=== PATIENT | male | born 1960 | race Two or more races ===

== ENCOUNTER 2016-09-24 23:14 | Inpatient (IN) | payer MEDICARE, MEDICAID ==
[~2016-09-24] VITALS: Ht 185.4 cm; Wt 99.8 kg
[2016-09-24 23:36] LABS: ADD UA MICROSCOPIC NO; KETONES,URINE NEGATIVE (NEGATIVE); LEUKOCYTE ESTERASE ,URINE NEGATIVE (NEGATIVE)
[2016-09-24 23:38] LABS: BASOPHILS # (AUTO) 0.1 /CMM (0.0-0.2); BASOPHILS % (AUTO) 0.6 % (0.0-2.0); DIFF TOTAL % 100 %; EOSINOPHILS # (AUTO) 0.1 /CMM (0.0-0.7); HEMATOCRIT 52 % (39-51); HEMOGLOBIN 17.4 g/dL (13.5-17.5); LYMPHOCYTES % (AUTO) 22.2 % (20.0-44.0); MEAN CORPUSCULAR HEMOGLOBIN 32 PG (26.0-33.0); MEAN CORPUSCULAR HGB CONC 34 g/dl (31.0-36.0); MEAN CORPUSCULAR VOLUME 94 fL (80-96); MONOCYTES # (AUTO) 0.9 /CMM (0.1-1.30); MONOCYTES % (AUTO) 6.6 % (2.0-12.0); NEUTROPHILS # (AUTO) 9.5 /CMM (1.8-8.9); NEUTROPHILS % (AUTO) 69.6 % (43.0-81.0); PLATELET COUNT (AUTO) 271 /CMM (150-450); RED BLOOD CELL COUNT(AUTO) 5.51 MIL/uL (4.5-6.0); WHITE BLOOD COUNT (AUTO) 13.7 K/uL (4.3-11.0)
[2016-09-24 23:42] LABS: ANION GAP 10 (5-14); CALCIUM, SERUM 8.8 mg/dL (8.5-10.1); CARBON DIOXIDE 34 mmol/L (21-32); CHLORIDE 104 mmol/L (98-107); CREATININE 1.4 mg/dL (0.6-1.3); GFR 52 mL/min (>60); GLUCOSE 93 mg/dL (74-106); POTASSIUM 3.9 mmol/L (3.5-5.1); SODIUM SERUM 144 mmol/L (136-145); UREA NITROGEN, BLOOD 20 mg/dL (7-18)
[2016-09-24 23:47] LABS: ALANINE AMINOTRANSFERASE 37 U/L (12-78); ALBUMIN 3.4 g/dL (3.4-5.0); ASPARTATE AMINOTRANSFERASE 22 U/L (15-37); BILIRUBIN,DIRECT 0.1 mg/dL (0.0-0.2); BILIRUBIN,TOTAL 0.4 mg/dL (0.2-1.0); INDIRECT BILIRUBIN 0.3 mg/dL (0.0-1.1); TOTAL PROTEIN, SERUM 7.4 g/dL (6.4-8.2)
[2016-09-24 23:48] LABS: ACETAMINOPHEN 0 ug/ml (10-30); SALICYLATE 1.9 mg/dL (2.8-20.0)
[2016-09-24 23:49] LABS: PHENCYCLIDINE SCREEN,URINE NEGATIVE (NEGATIVE)
[2016-09-24 23:50] LABS: CANNABINOID, URINE POSITIVE (NEGATIVE)
[2016-09-24] MEDS ORDERED: FEXO-61 PO (23:53)
[2016-09-24] MEDS ORDERED: VENL75TA4 PO (23:53)
[2016-09-24] MEDS ORDERED: OLME1TAB PO (23:53)
[2016-09-24] MEDS ORDERED: DEXL60CA3 PO (23:53)
[2016-09-25] MEDS ORDERED: VENL75TA74 PO (00:21)
[2016-09-25 00:45] VITALS: BP 116/84
[2016-09-25] MEDS ORDERED: MAGNESIUM HYDROXIDE 30 ML UDC PO PRN (01:30)
[2016-09-25] MEDS ORDERED: TEMAZEPAM 7.5 MG CAPSULE PO PRN (01:30)
[2016-09-25] MEDS ORDERED: MAG HYDROX/AL HYDROX/SIMETH 30 ML UDC PO PRN (01:30)
[2016-09-25 15:44] LABS: CHOLESTEROL 256 mg/dL (<200); HDL CHOLESTEROL 37 mg/dL (40-60); LDL 197 mg/dL (0-99); TRIGLYCERIDES 149 mg/dL (30-150)
[2016-09-25 16:00] VITALS: BP 114/71
[2016-09-25] MEDS: VENLAFAXINE 37.5 MG TABLET PO SCH (18:00)
[2016-09-25 20:05] VITALS: BP 122/65
[2016-09-25] MEDS: LORAZEPAM 0.5 MG TABLET PO PRN (21:37)
[2016-09-26 08:15] VITALS: BP 112/74
[2016-09-26] MEDS: VENLAFAXINE 37.5 MG TABLET PO SCH ×2 (08:55→13:18)
[2016-09-26] MEDS: LORAZEPAM 0.5 MG TABLET PO PRN (13:18)
[2016-09-26 16:37] VITALS: BP 109/75
[2016-09-26] MEDS: VENLAFAXINE XR 75 MG CAP.SR.24H PO SCH (17:48)
[2016-09-26 20:00] VITALS: BP 140/67
[2016-09-27 08:15] VITALS: BP 121/68
[2016-09-27] MEDS ORDERED: HYDROCHLOROTHIAZIDE 25 MG TABLET PO SCH (09:00)
[2016-09-27] MEDS: VENLAFAXINE XR 75 MG CAP.SR.24H PO SCH ×3 (09:06→16:56)
[2016-09-27 16:19] VITALS: BP 129/96
== END 2016-09-27 17:42 | disposition home or self-care (01) | DRG 885 ==
LOC: ER 23:20 → GPS 09-25 00:11
PROVIDERS: ADMIT Nurse Practitioner Acute Care; ATTEND Psychiatry & Neurology Psychiatry
DX: F33.2 Major depressive disorder, recurrent severe without psychotic features (principal); N18.3 Chronic kidney disease, stage 3 (moderate); R45.851 Suicidal ideations; E78.5 Hyperlipidemia, unspecified; F41.9 Anxiety disorder, unspecified; I12.9 Hypertensive chronic kidney disease with stage 1 through stage 4 chronic kidney disease, or unspecified chronic kidney disease; D72.829 Elevated white blood cell count, unspecified; K21.9 Gastro-esophageal reflux disease without esophagitis; Z73.6 Limitation of activities due to disability
CPT/HCPCS: 36415; 80048-TC; 80061-TC; 80076-TC; 81000-TC; 85025-TC; 87081-TC; A4606; G0434; G6038-TC; G6039-TC; G6040-TC; Z7610

== ENCOUNTER 2016-11-30 18:07 | Inpatient (IN) | payer MEDICARE, OTHER ==
[~2016-11-30] VITALS: Ht 182.9 cm; Wt 103.0 kg
[~2016-11-30 18:07] MED LIST: DEXL60CA3 PO; FEXO-61 PO; OLME1TAB PO; VENL75TA74 PO
[2016-11-30] MEDS ORDERED: HALOPERIDOL LACTATE INJ 5 MG/ML VIAL ONE (18:13)
[2016-11-30] MEDS ORDERED: diphenhydrAMINE HCL 50 MG/ML VIAL ONE (18:13)
[2016-11-30] MEDS ORDERED: LORAZEPAM INJ 2 MG/ML VIAL ONE (18:13)
[2016-11-30] MEDS ORDERED: HALOPERIDOL LACTATE INJ 5 MG/ML VIAL IM ONE (18:30)
[2016-11-30] MEDS ORDERED: LORAZEPAM INJ 2 MG/ML VIAL IV ONE (18:30)
[2016-11-30] MEDS ORDERED: diphenhydrAMINE HCL 50 MG/ML VIAL IM ONE (18:30)
[2016-11-30 18:33] LABS: BASOPHILS # (AUTO) 0.1 /CMM (0.0-0.2); BASOPHILS % (AUTO) 0.4 % (0.0-2.0); DIFF TOTAL % 100 %; EOSINOPHILS % (AUTO) 0.1 % (0.0-6.0); HEMATOCRIT 51 % (39-51); HEMOGLOBIN 17.3 g/dL (13.5-17.5); LYMPHOCYTES # (AUTO) 1.8 /CMM (0.8-4.8); LYMPHOCYTES % (AUTO) 10.2 % (20.0-44.0); MEAN CORPUSCULAR HEMOGLOBIN 32 PG (26.0-33.0); MEAN CORPUSCULAR HGB CONC 34 g/dl (31.0-36.0); MEAN CORPUSCULAR VOLUME 94 fL (80-96); MONOCYTES # (AUTO) 1.2 /CMM (0.1-1.30); MONOCYTES % (AUTO) 6.9 % (2.0-12.0); NEUTROPHILS # (AUTO) 14.3 /CMM (1.8-8.9); NEUTROPHILS % (AUTO) 82.4 % (43.0-81.0); PLATELET COUNT (AUTO) 248 /CMM (150-450); RED BLOOD CELL COUNT(AUTO) 5.44 MIL/uL (4.5-6.0); WHITE BLOOD COUNT (AUTO) 17.4 K/uL (4.3-11.0)
[2016-11-30 18:39] LABS: KETONES,URINE Negative (NEGATIVE); LEUKOCYTE ESTERASE ,URINE Negative (NEGATIVE); PH,URINE 5.5 (5.0-8.0)
[2016-11-30 18:40] LABS: ANION GAP 15 (5-14); CARBON DIOXIDE 27 mmol/L (21-32); CHLORIDE 106 mmol/L (98-107); CREATININE 1.1 mg/dL (0.6-1.3); GFR 69 mL/min (>60); GLUCOSE 129 mg/dL (74-106); POTASSIUM 3.8 mmol/L (3.5-5.1); SODIUM SERUM 144 mmol/L (136-145); UREA NITROGEN, BLOOD 27 mg/dL (7-18)
[2016-11-30 18:53] LABS: ALANINE AMINOTRANSFERASE 32 U/L (12-78); ASPARTATE AMINOTRANSFERASE 37 U/L (15-37); BILIRUBIN,DIRECT 0.2 mg/dL (0.0-0.2); BILIRUBIN,TOTAL 0.9 mg/dL (0.2-1.0); INDIRECT BILIRUBIN 0.7 mg/dL (0.0-1.1); SALICYLATE 1.6 mg/dL (2.8-20.0); TOTAL PROTEIN, SERUM 7.9 g/dL (6.4-8.2)
[2016-11-30 18:53] LABS: CANNABINOID, URINE POSITIVE (NEGATIVE); PHENCYCLIDINE SCREEN,URINE NEGATIVE (NEGATIVE)
[2016-11-30 18:54] LABS: ACETAMINOPHEN 0 ug/ml (10-30)
[2016-11-30 18:59] LABS: ADD UA MICROSCOPIC YES
[2016-11-30 19:01] LABS: ADD URINE CULTURE NO; WBC,URINE 2-4/HPF /HPF (0-3)
[2016-11-30 19:02] LABS: MUCUS,URINE Few /LPF (None Seen)
[2016-11-30] MEDS ORDERED: LEVOFLOXACIN 750 MG /D5W 150ML 750 MG in PREMIX 1 EA IV SCH (20:00)
[2016-11-30] MEDS ORDERED: LEVOFLOXACIN 750 MG /D5W 150ML 150 ML IV ONE (20:35)
[2016-11-30] MEDS ORDERED: IV SET PRIMARY PUMP SET 1 EA INFUS.SET MC ONE (20:36)
[2016-11-30 21:00] VITALS: BP 153/94
[2016-11-30] MEDS ORDERED: ENOXAPARIN SODIUM 40 MG/0.4 ML DISP.SYRIN SQ ONE (22:12)
[2016-11-30] MEDS ORDERED: ONDANSETRON HCL/PF 4 MG/2 ML VIAL IVP PRN (22:30)
[2016-11-30] MEDS ORDERED: MAGNESIUM HYDROXIDE 30 ML UDC PO PRN (22:30)
[2016-11-30] MEDS ORDERED: ACETAMINOPHEN 325 MG TABLET PO PRN (22:30)
[2016-11-30] MEDS ORDERED: Z GUARD REMEDY 2 OZ OINT TP PRN (22:30)
[2016-11-30] MEDS ORDERED: HYDROCODONE/APAP 5/325MG 1 EACH TABLET PO PRN (22:30)
[2016-11-30] MEDS ORDERED: MAG HYDROX/AL HYDROX/SIMETH 30 ML UDC PO PRN (22:30)
[2016-11-30] MEDS ORDERED: ENOXAPARIN SODIUM 40 MG/0.4 ML DISP.SYRIN SQ SCH (22:30)
[2016-12-01 06:28] LABS: BASOPHILS % (AUTO) 0.2 % (0.0-2.0); DIFF TOTAL % 100 %; EOSINOPHILS # (AUTO) 0.1 /CMM (0.0-0.7); EOSINOPHILS % (AUTO) 0.9 % (0.0-6.0); HEMATOCRIT 48 % (39-51); LYMPHOCYTES # (AUTO) 2.5 /CMM (0.8-4.8); LYMPHOCYTES % (AUTO) 22.4 % (20.0-44.0); MEAN CORPUSCULAR HEMOGLOBIN 32 PG (26.0-33.0); MEAN CORPUSCULAR HGB CONC 34 g/dl (31.0-36.0); MEAN CORPUSCULAR VOLUME 94 fL (80-96); MONOCYTES # (AUTO) 0.9 /CMM (0.1-1.30); MONOCYTES % (AUTO) 8.3 % (2.0-12.0); NEUTROPHILS # (AUTO) 7.6 /CMM (1.8-8.9); NEUTROPHILS % (AUTO) 68.2 % (43.0-81.0); PLATELET COUNT (AUTO) 239 /CMM (150-450); RED BLOOD CELL COUNT(AUTO) 5.05 MIL/uL (4.5-6.0); WHITE BLOOD COUNT (AUTO) 11.1 K/uL (4.3-11.0)
[2016-12-01 06:42] LABS: CALCIUM, SERUM 8.9 mg/dL (8.5-10.1); CREATININE 0.9 mg/dL (0.6-1.3); POTASSIUM 3.3 mmol/L (3.5-5.1)
[2016-12-01] MEDS: PANTOPRAZOLE 40 MG TABLET.DR PO SCH (07:30)
[2016-12-01] MEDS ORDERED: HYDROCODONE/APAP 5/325MG 1 EACH TABLET PO PRN (07:30)
[2016-12-01 08:00] VITALS: BP 139/98
[2016-12-01] MEDS ORDERED: POTASSIUM CHLORIDE 20 MEQ TAB.PRT.SR PO SCH (12:00)
[2016-12-01] MEDS ORDERED: POTASSIUM CHLORIDE 20 MEQ TAB.PRT.SR PO ONE (13:00)
[2016-12-01] MEDS: DIVALPROEX SODIUM 500 MG TABLET.DR PO SCH ×2 (14:53→20:48)
[2016-12-01 16:00] VITALS: BP 133/97
[2016-12-01 20:00] VITALS: BP 146/83
[2016-12-01] MEDS ORDERED: SECONDARY IV SET 1 EA INFUS.SET MC ONE (20:43)
[2016-12-01] MEDS ORDERED: IV NS 0.9% 250 ML IV ONE (20:43)
[2016-12-01] MEDS ORDERED: IV SET PRIMARY PUMP SET 1 EA INFUS.SET MC ONE (20:43)
[2016-12-01] MEDS: LEVOFLOXACIN 750 MG /D5W 150ML 750 MG in PREMIX 1 EA IV SCH (20:48)
[2016-12-01] MEDS: ENOXAPARIN SODIUM 40 MG/0.4 ML DISP.SYRIN SQ SCH ×2 (20:49→21:00)
[2016-12-01] MEDS: ZOLPIDEM TARTRATE 5 MG TABLET PO PRN (20:51)
[2016-12-01] MEDS ORDERED: OLANZAPINE 5 MG/TAB.RAPDIS PO SCH (22:00)
[2016-12-02 08:00] VITALS: BP_SYST 138; BP_SYST 140; BP_DIAS 87; BP_DIAS 98
[2016-12-02] MEDS: DIVALPROEX SODIUM 500 MG TABLET.DR PO SCH ×2 (08:42→20:39)
[2016-12-02] MEDS: PANTOPRAZOLE 40 MG TABLET.DR PO SCH (08:42)
[2016-12-02] MEDS: OLANZAPINE 5 MG/TAB.RAPDIS PO SCH ×2 (15:20→20:39)
[2016-12-02 15:21] LABS: BASOPHILS % (AUTO) 0.3 % (0.0-2.0); DIFF TOTAL % 100 %; EOSINOPHILS # (AUTO) 0.1 /CMM (0.0-0.7); EOSINOPHILS % (AUTO) 0.9 % (0.0-6.0); HEMATOCRIT 49 % (39-51); HEMOGLOBIN 16.4 g/dL (13.5-17.5); LYMPHOCYTES # (AUTO) 2.8 /CMM (0.8-4.8); LYMPHOCYTES % (AUTO) 27.9 % (20.0-44.0); MEAN CORPUSCULAR HEMOGLOBIN 31 PG (26.0-33.0); MEAN CORPUSCULAR HGB CONC 33 g/dl (31.0-36.0); MEAN CORPUSCULAR VOLUME 94 fL (80-96); MONOCYTES # (AUTO) 0.7 /CMM (0.1-1.30); MONOCYTES % (AUTO) 6.6 % (2.0-12.0); NEUTROPHILS # (AUTO) 6.4 /CMM (1.8-8.9); NEUTROPHILS % (AUTO) 64.3 % (43.0-81.0); PLATELET COUNT (AUTO) 246 /CMM (150-450); RED BLOOD CELL COUNT(AUTO) 5.22 MIL/uL (4.5-6.0)
[2016-12-02 15:41] LABS: CREATININE 1.1 mg/dL (0.6-1.3); POTASSIUM 4.4 mmol/L (3.5-5.1)
[2016-12-02 16:00] VITALS: BP 138/87
[2016-12-02 20:00] VITALS: BP 141/98
[2016-12-02] MEDS: ZOLPIDEM TARTRATE 5 MG TABLET PO PRN (20:39)
[2016-12-02] MEDS: LEVOFLOXACIN 750 MG /D5W 150ML 750 MG in PREMIX 1 EA IV SCH (20:39)
[2016-12-02 20:43] VITALS: BP 141/98
[2016-12-02] MEDS: ENOXAPARIN SODIUM 40 MG/0.4 ML DISP.SYRIN SQ SCH (20:46)
[2016-12-03] MEDS: PANTOPRAZOLE 40 MG TABLET.DR PO SCH (07:12)
[2016-12-03] MEDS: OLANZAPINE 5 MG/TAB.RAPDIS PO SCH (08:09)
[2016-12-03] MEDS: DIVALPROEX SODIUM 500 MG TABLET.DR PO SCH (08:09)
[2016-12-03 08:22] VITALS: BP 135/90
== END 2016-12-03 10:54 | DRG 177 ==
LOC: ER 18:09 → GPS 19:31 → MEDSG2 19:58
PROVIDERS: ADMIT Nurse Practitioner Acute Care; ATTEND Nurse Practitioner Acute Care
DX: J69.0 Pneumonitis due to inhalation of food and vomit (principal); N17.0 Acute kidney failure with tubular necrosis; F31.60 Bipolar disorder, current episode mixed, unspecified; E78.5 Hyperlipidemia, unspecified; N18.9 Chronic kidney disease, unspecified; K21.9 Gastro-esophageal reflux disease without esophagitis; F12.10 Cannabis abuse, uncomplicated; G89.29 Other chronic pain; F41.9 Anxiety disorder, unspecified; Z73.6 Limitation of activities due to disability; I12.9 Hypertensive chronic kidney disease with stage 1 through stage 4 chronic kidney disease, or unspecified chronic kidney disease; N18.3 Chronic kidney disease, stage 3 (moderate)
CPT/HCPCS: 36415; 71010-TC; 80048-TC; 80061-TC; 80076-TC; 80305; 81000-TC; 83605-TC; 83735-TC; 84100-TC; 85025-TC; 87040-TC; 87081-TC; 87086-TC; A4216; A4606; G0480; G6039-TC; J1200; J1630; J1650; J1956; J2060; J7050; Z7610

== ENCOUNTER 2016-12-03 11:14 | Inpatient (IN) | payer MEDICARE, OTHER ==
[~2016-12-03] VITALS: Ht 185.4 cm; Wt 106.6 kg
[2016-12-03 11:30] VITALS: BP 154/96
[2016-12-03] MEDS ORDERED: MAG HYDROX/AL HYDROX/SIMETH 30 ML UDC PO PRN (11:30)
[2016-12-03] MEDS ORDERED: MAGNESIUM HYDROXIDE 30 ML UDC PO PRN (11:30)
[2016-12-03] MEDS ORDERED: LORAZEPAM 0.5 MG TABLET PO PRN (11:30)
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
[2016-12-03] MEDS: LORAZEPAM 0.5 MG TABLET PO PRN ×2 (15:03→23:08)
--- NOTE | 2016-12-03 15:03 | NUR ---
GPS RN: PATIENT IS VERY RESTLESS, HYPERVERBAL, UNABLE TO REDIRECT, ASKING FOR MEDICATION TO HELP HIM CALM DOWN. ADMINISTERED ATIVAN 1 MG PO, CONTINUE TO MONITOR.
[2016-12-03 16:00] VITALS: BP 130/96
[2016-12-03] MEDS: OLANZAPINE 5 MG/TAB.RAPDIS PO SCH (16:26)
[2016-12-03] MEDS: IBUPROFEN 400 MG TABLET PO PRN ×2 (16:26→23:08)
--- NOTE | 2016-12-03 19:45 | NUR ---
GPS NOTES RECEIVED PATIENT, SLEEPING IN ROOM. BREATHING EVEN AND UNLABORED. NO SIGNS OF DISTRESS NOTED. WILL CONTINUE TO MONITOR
[2016-12-03 20:00] VITALS: BP 139/69
[2016-12-03] MEDS: DIVALPROEX SODIUM 500 MG TABLET.DR PO SCH (21:06)
[2016-12-03] MEDS: TEMAZEPAM 7.5 MG CAPSULE PO PRN ×2 (21:12→21:22)
--- NOTE | 2016-12-03 21:22 | NUR ---
GPS NOTES PATIENT REQUESTED MICHELLEIEN. INFORMED HIM THAT HE HAS RESTORIL PRESCRIBED AT THIS TIME. MEDICATION WAS OPENED BUT PATIENT SAID HE LIKES TO OPEN THE CAPSULE TO CONSUME JUST THE POWDER BUT HE SPILLED SOME OF THE POWDER ON THE FLOOR. PATIENT UPSET THAT NOW HE WASNT GOING TO GET A FULL DOSE. WASTED THE MEDICATION AND RETRIEVED A NEW ONE. ANOTHER RN WAS NOTIFIED AND WITNESSED FOR ME.
--- NOTE | 2016-12-03 23:23 | NUR ---
GPS NOTES REMOVED ATIVAN 1MG BUT MISREAD THE PYXIS AND HAD MEDICAL CLAIMS MANAGER WITNESS ME WASTING 0.5MG. ADMINISTERED THE FULL DOSE OF 1MG (2 TABS) TO PATIENT.
--- NOTE | 2016-12-03 23:30 | NUR ---
GPS NOTES PT AWAKE, VERY TALKATIVE AND WALKING IN THE HALLS. ALL DUE MEDICATION ADMINISTERED. SAYS HE IS GOING TO BED. WILL CONTINUE TO MONITOR
--- NOTE | 2016-12-04 06:30 | NUR ---
GPS NOTES PATIENT ASLEEP, BREATHING EVEN AND UNLABORED. NO S/S OF DISTRESS NOTED. ALL DUE MEDICATIONS ADMINISTERED, PRN MEDS ALSO GIVEN. PT WAS COOPERATIVE, ATTENTION SEEKING, HYPERVERBAL. NO CHANGES OVERNIGHT. BED IN LOW/LOCKED POSITION. WILL ENDORSE TO AM SHIFT ERICA.
[2016-12-04] MEDS: OLANZAPINE 5 MG/TAB.RAPDIS PO SCH ×3 (09:30→18:42)
[2016-12-04] MEDS: DIVALPROEX SODIUM 500 MG TABLET.DR PO SCH ×2 (09:30→21:01)
[2016-12-04 10:20] VITALS: BP 138/78
[2016-12-04] MEDS: LORAZEPAM 0.5 MG TABLET PO PRN ×2 (12:10→18:42)
--- NOTE | 2016-12-04 12:10 | NUR ---
ADMINISTERED ATIVAN 1 MG PO PRN FOR ANXIETY, PARANOIA, PT VERY MANIC, INTRUSIVE , VERBALLY ABUSIVE, V/S TAKE BP-138/73, P-86, CONTINUED MONITORING.
[2016-12-04] MEDS: IBUPROFEN 400 MG TABLET PO PRN ×2 (12:40→21:06)
--- NOTE | 2016-12-04 12:41 | NUR ---
ADMINISTERED MOTRIN 400 MG PO PRN FOR GENERALIZED PAIN, 03/04, V/S STABLE BP- 135/78, CONTINUED MONITORING.
[2016-12-04 15:45] VITALS: BP 126/96
--- NOTE | 2016-12-04 18:42 | NUR ---
ADMINISTERED ATIVAN 1 MG PO PRN FOR ANXIETY, PARANOIA, V/S STABLE BP-126/96, P-71, CONTINUED MONITORING.
--- NOTE | 2016-12-04 21:00 | NUR ---
GPS NOTES: PT HYPERVERBAL AND VERY PARANOID. PT KEPT ON TALKING ABOUT HIS MONEY IN THE BANK AND MONEY HIDDEN AT HOME. HE WAS VERY WORRIED ABOUT LOOSING A LOT OF MONEY IF HE DOESN'T GET DISCHARGED TOMORROW. PT ALSO ORDERED FOOD BUT CHARGE NURSE EXPLAINED TO HIM THAT FOOD CAN'T BE ORDERED UNLESS IT'S BROUGHT OR PACKED BY HIS FAMILY. PT AGREED AND UNDERSTOOD. PT COMPLAINED OF HEADACHE, PRN MOTRIN 400 MG GIVEN. WILL CONTINUE TO MONITOR.
[2016-12-04] MEDS: TEMAZEPAM 7.5 MG CAPSULE PO PRN (21:05)
--- NOTE | 2016-12-04 22:00 | NUR ---
GPS NOTES: PT STILL VERY TALKATIVE WALKING BACK AND FORTH FROM HIS ROOM TO THE NURSING STATION. PT ASKED TO BORROW THE CORDLESS PHONE TO CALL HIS MOTHER. PT WAS ON THE PHONE FOR ABOUT 30 MIN. CALLING HIS MOTHER AND ROSALIND BRAY. PT STATED THAT HE WANTED TO CALL ROSALIND BRAY IN ORDER TO WITHDRAW HIS MONEY FROM HIS INVESTMENTS.
--- NOTE | 2016-12-04 23:30 | NUR ---
GPS NOTES: PT WAS STILL WALKING BACK AND FORTH FROM HIS ROOM TO THE NURSING STATION. PT CONSTANTLY ASKING FOR MULTIPLE CRACKERS AND JUICE. WHEN PT FINALLY WENT TO HIS ROOM AND TRIED TO SLEEP, PT TRIED TO COVER HIS DOOR WITH A BLANKET TO SECLUDE HIMSELF IN THE ROOM. LIMIT SETTING DONE. PT WAS ABLE TO UNDERSTAND THAT HE NEEDS TO BE CHECKED Q15 MIN. WILL CONTINUE TO MONITOR.
[2016-12-05] MEDS: IBUPROFEN 400 MG TABLET PO PRN ×2 (03:32→21:04)
--- NOTE | 2016-12-05 03:40 | NUR ---
GPS NOTES: PT WOKE UP COMPLAINING OF HEADACHE. PRN MOTRIN 400 MG GIVEN. BP 126/70 HR 83.
[2016-12-05] MEDS: OLANZAPINE 5 MG/TAB.RAPDIS PO SCH ×4 (08:29→22:00)
[2016-12-05] MEDS: DIVALPROEX SODIUM 500 MG TABLET.DR PO SCH ×2 (08:30→18:24)
[2016-12-05] MEDS: LORAZEPAM 0.5 MG TABLET PO PRN ×2 (08:30→14:46)
--- NOTE | 2016-12-05 08:35 | NUR ---
administered 1mg po prn given for anxiety paranoia , v/s taken bp 137/90 p 86 continue to monitoring pt.
[2016-12-05 09:16] VITALS: BP 137/90
--- NOTE | 2016-12-05 14:46 | NUR ---
ADMINISTERED ATIVAN 2 MG PO PRN FOR ANXIETY, PARANOIA DISORGANIZE AND HARD TO FOLLOW DIRECTION. PI M\IS AGGRESSIVE MANIPULATIVE WILL CONTINUE TO MONITOR .
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
[2016-12-05] MEDS ORDERED: OLANZAPINE 10 MG VIAL IM STA (19:24)
[2016-12-05] MEDS ORDERED: LORAZEPAM INJ 2 MG/ML VIAL IM STA (19:25)
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
[2016-12-05 20:00] VITALS: BP 129/98
--- NOTE | 2016-12-05 20:00 | NUR ---
GPS RN NOTE, PLACED A CALL AND LEFT A MESSAGE FOR MEIR VILLEGAS (PATIENT MOTHER) PHONE # [phone]. WILL CONTINUE TO MONITOR THIS PATIENT.
--- NOTE | 2016-12-05 20:31 | NUR ---
GPS/RN NOTE: UNABLE TO GIVE BENICAR PILL FOR BP, PATIENT STILL UPSET AND DELUSIONAL, LAUGHING, NOT FOLLOWING DIRECTION. WILL CONTINUE TO MONITOR. BP NOW 129/98, HR 70. SAT. 100% ROOM AIR.
--- NOTE | 2016-12-05 23:20 | NUR ---
GPS/RN NOTE: PATIENT RELEASED FROM FOUR POINT RESTRAINT TO USE THE BATHROOM. ALL FOUR EXTREMITIES CHECKED. NO NEW SKIN ISSUES, NO BRUISING, NO SKIN TEAR, NO PAIN NOTED THIS TIME. PATIENT STILL HARD TO REDIRECT. WILL RENEW FOUR POINT RESTRAINT ORDER.
[2016-12-06] MEDS: BENICAR HCT PO SCH ×2 (00:26→08:12)
[2016-12-06] MEDS: OLANZAPINE 5 MG/TAB.RAPDIS PO SCH ×4 (00:26→21:07)
--- NOTE | 2016-12-06 00:26 | NUR ---
GPS/RN NOTE: PATIENT OFF FOUR POINT RESTRAINT, FOLLOWS DIRECTION AT THIS TIME. BENICAR TAB 1 PO GIVEN AND ZYPREXA TAB PO GIVEN.
[2016-12-06] MEDS: TEMAZEPAM 7.5 MG CAPSULE PO PRN ×2 (00:41→21:07)
--- NOTE | 2016-12-06 00:44 | NUR ---
GPS/RN NOTE: PATIENT STILL AWAKE, UNABLE TO SLEEP, FIDGETY. RESTORIL 7.5 MG CAP 1 PO GIVEN.
--- NOTE | 2016-12-06 00:45 | NUR ---
GPS/RN NOTE: PATIENT STARTED GETTING AGITATED, HAVING DIFFICULTY FOLLOWING DIRECTIONS, REQUESTED USING THE BATHROOM, STAFF ASSISTED. PATIENT NEEDS CONSTANT AND FIRM REDIRECTION, UNPREDICTABLE AND VERY LABILE. STILL ON 1:1 SITTER FOR SAFETY.
--- NOTE | 2016-12-06 00:58 | NUR ---
THE PATIENT WAS RELEASED FROM 4 POINT RESTRAINT AT 23:20.
[2016-12-06 08:00] VITALS: BP 155/108
[2016-12-06] MEDS: DIVALPROEX SODIUM 500 MG TABLET.DR PO SCH ×3 (08:08→17:22)
[2016-12-06] MEDS: LORAZEPAM 0.5 MG TABLET PO PRN ×2 (08:09→17:22)
--- NOTE | 2016-12-06 12:19 | NUR ---
Initial discharge plan: Pt. lives in an apartment at [address] [place] [address] and wants to return there. Per pt's mother, he is unable to return there but can go live with his mother, Cathy [phone]. SW will work with pt, md and mother and will form safe and proper discharge.
[2016-12-06 16:14] VITALS: BP 127/93
--- NOTE | 2016-12-06 17:22 | NUR ---
ADMINISTERED ATIVAN 2 MG PO PRN FOR ANXIETY, PARANOIA, DEMANDING, AGGRESSIVE, DELUSIONAL, HARD TO FOLLOW DIRECTION, V/S STABLE BP-127/93, P-108, 1:1 SITTER NEXT TO THE PATIENT FOR SAFETY, CONTINUED MONITORING.
--- NOTE | 2016-12-06 19:30 | NUR ---
GPS RN NOTE, RECEIVED PATIENT AWAKE AND IN BED, NO S/S OR COMPLAINTS OF PAIN AT THIS TIME. PATIENT IS DISPLAYING NO S/S OF APPARENT DISTRESS AT THIS TIME. PATIENT BREATHING IS UNLABORED WITH EQUAL RISE AND FALL OF THE CHEST. PATIENT IS ALERT AND ORIENTED X 2 ON ROOM AIR WITH A SPO2 96%. PATIENT COMPLIANT WITH MEDICATIONS, ANXIOUS, HYPERVERBAL, DISORGANIZED, CONFUSED AT TIMES, AND NEEDS REORIENTATION. PATIENT DENIES SUICIDE AND HOMICIDAL IDEATIONS AT THIS TIME. PATIENT ASSISTED WITH TURNING AND REPOSITIONING Q2HR AND PRN FOR COMFORT AND CIRCULATION. PATIENT HAS NO NEEDS AT THIS TIME. PATIENT REFUSED SKIN ASSESSMENT TODAY. PATIENT EDUCATED ON THE USE OF THE CALL TREJO. PATIENT BED SIDE RAILS UP X2 FOR SAFETY, BED IS LOCKED AND LOW WILL CONTINUE TO MONITOR AND MAINTAIN SAFETY.
[2016-12-06 20:18] VITALS: BP 113/83
--- NOTE | 2016-12-06 21:07 | NUR ---
GPS RN NOTE, PATIENT HAS A COMPLAINT OF NOT BEING ABLE TO SLEEP AND WOULD LIKE A SLEEPING AID AT THIS TIME. PATIENT VITAL SIGNS ARE STABLE. GAVE RESTORIL 7.5MG PO HS ORDERED. WILL REASSESS FOR INSOMNIA AND I WILL CONTINUE TO MONITOR THIS PATIENT.
[2016-12-07 07:27] LABS: BASOPHILS % (AUTO) 0.2 % (0.0-2.0); EOSINOPHILS # (AUTO) 0.2 /CMM (0.0-0.7); EOSINOPHILS % (AUTO) 2.5 % (0.0-6.0); HEMATOCRIT 52 % (39-51); HEMOGLOBIN 17.3 g/dL (13.5-17.5); LYMPHOCYTES # (AUTO) 2.9 /CMM (0.8-4.8); MEAN CORPUSCULAR HEMOGLOBIN 32 PG (26.0-33.0); MEAN CORPUSCULAR HGB CONC 33 g/dl (31.0-36.0); MEAN CORPUSCULAR VOLUME 96 fL (80-96); MONOCYTES # (AUTO) 0.8 /CMM (0.1-1.30); MONOCYTES % (AUTO) 9.5 % (2.0-12.0); NEUTROPHILS # (AUTO) 4.8 /CMM (1.8-8.9); NEUTROPHILS % (AUTO) 54.8 % (43.0-81.0); PLATELET COUNT (AUTO) 184 /CMM (150-450); RDW COEFFICIENT OF VARIATION 13.7 (11.5-15.0); RED BLOOD CELL COUNT(AUTO) 5.49 MIL/uL (4.5-6.0); WHITE BLOOD COUNT (AUTO) 8.8 K/uL (4.3-11.0)
[2016-12-07 07:34] LABS: CALCIUM, SERUM 8.9 mg/dL (8.5-10.1); CREATININE 1.2 mg/dL (0.6-1.3); POTASSIUM 4.8 mmol/L (3.5-5.1)
[2016-12-07] MEDS: DIVALPROEX SODIUM 500 MG TABLET.DR PO SCH ×3 (07:55→18:39)
[2016-12-07] MEDS: BENICAR HCT PO SCH (07:55)
[2016-12-07] MEDS: LORAZEPAM 0.5 MG TABLET PO PRN ×2 (07:56→18:40)
[2016-12-07] MEDS: OLANZAPINE 5 MG/TAB.RAPDIS PO SCH ×3 (07:56→22:02)
--- NOTE | 2016-12-07 07:56 | NUR ---
PATIENT PARANOID, AGGRESSIVE, IRRITABLE, HARD TO REDIRECT, SUSPICIOUS, UNPREDICTABLE, ADMINISTERED ATIVAN 2 MG PO PRN PRESCRIBED, V/S STABLE BP-129/99,P- 99, CONTINUED MONITORING.
[2016-12-07 08:43] VITALS: BP 129/99
--- NOTE | 2016-12-07 09:37 | NUR ---
ULYSSES spoke with pt's mother, Cathy [phone] and she confirms some of the stories that the patient has told and it appears that most are correct. Pt. did buy a new house and will be able to move in with her and the new address is [address] [place] [id number]. Per Cathy, when at his baseline, pt is completely different than he is right now.
[2016-12-07 15:55] VITALS: BP 130/80
--- NOTE | 2016-12-07 20:00 | NUR ---
RECEIVED PATIENT IN THE ROOM, ALERT AND ORIENTED X2, RESTLESS, TALKING INCOHERENTLY, DOES NOT ANSWER QUESTIONS CORRECTLY, MUMBLING TO SELF. NO SOB, NOT IN APPARENT PAIN AT THIS TIME, AMBULATES WITH STEADY GAIT. SITTER AT THE BEDSIDE. WILL CONTINUE TO MONITOR.
[2016-12-07 20:45] VITALS: BP 101/72
[2016-12-07 22:00] VITALS: BP 101/72
[2016-12-07] MEDS: TEMAZEPAM 7.5 MG CAPSULE PO PRN (22:03)
--- NOTE | 2016-12-07 22:45 | NUR ---
COMPLIANT WITH MEDICATION WITH REDIRECTION. TALKING TO SELF. GIVEN RESTORIL, SITTER AT THE BEDSIDE.
--- NOTE | 2016-12-08 06:30 | NUR ---
PATIENT RESTING COMFORTABLY IN BED, CALM, NO SOB, NO DISTRESS, NO COMPLAIN OF PAIN. COMPLIANT WITH MEDICATION, SITTER AT THE BEDSIDE.
[2016-12-08 08:00] VITALS: BP 136/70
[2016-12-08] MEDS: DIVALPROEX SODIUM 500 MG TABLET.DR PO SCH ×3 (09:00→17:10)
[2016-12-08] MEDS: BENICAR HCT PO SCH (09:00)
[2016-12-08] MEDS: OLANZAPINE 5 MG/TAB.RAPDIS PO SCH ×3 (09:05→21:59)
[2016-12-08 16:00] VITALS: BP 107/60
[2016-12-08] MEDS: LORAZEPAM 0.5 MG TABLET PO PRN (19:22)
[2016-12-08 20:00] VITALS: BP 144/97
[2016-12-08] MEDS: TEMAZEPAM 7.5 MG CAPSULE PO PRN (21:59)
[2016-12-09] MEDS: LORAZEPAM 0.5 MG TABLET PO PRN ×2 (01:47→09:22)
[2016-12-09 08:13] VITALS: BP 117/83
[2016-12-09] MEDS: DIVALPROEX SODIUM 500 MG TABLET.DR PO SCH ×3 (08:28→16:57)
[2016-12-09] MEDS: OLANZAPINE 5 MG/TAB.RAPDIS PO SCH ×3 (08:28→21:53)
[2016-12-09] MEDS: BENICAR HCT PO SCH (08:29)
--- NOTE | 2016-12-09 09:22 | NUR ---
GPS RN: PATIENT NOTED TO BE INCREASINGLY AGITATED, UNCOOPERATIVE, TRYING TO RIP HIS GOWN, DELUSIONAL, RESTLESS, HARD TO REDIRECT. ADMINISTERED ATIVAN 2MG PO ORDERED. VS STABLE, CONTINUE TO MONITOR THE PATIENT.
[2016-12-09 16:04] VITALS: BP 102/63
[2016-12-09] MEDS ORDERED: OLANZAPINE 10 MG VIAL IM ONE (16:30)
[2016-12-09] MEDS ORDERED: LORAZEPAM INJ 2 MG/ML VIAL IV PRN (16:30)
[2016-12-09] MEDS ORDERED: LORAZEPAM INJ 2 MG/ML VIAL IM STA (16:37)
--- NOTE | 2016-12-09 16:57 | NUR ---
GPS RN: PATIENT NOTED TO BE INCREASINGLY AGITATED, UNCOOPERATIVE, DELUSIONAL, RESTLESS, THROWING THE CHAIR, REFUSING PO MEDS, UNABLE TO REDIRECT. DR. SCHILLING PAGED WITH AN ORDER TO ADMINISTER ATIVAN 2MG IM ONCE AND ZYPREXA 15 MG IM ONCE. NOTED AND CARRIED OUT. CONTINUE TO MONITOR THE PATIENT.
[2016-12-09 20:00] VITALS: BP 103/68
[2016-12-09] MEDS: TEMAZEPAM 7.5 MG CAPSULE PO PRN (21:53)
[2016-12-10 08:36] VITALS: BP 118/82
[2016-12-10] MEDS: OLANZAPINE 5 MG/TAB.RAPDIS PO SCH ×3 (10:22→21:39)
[2016-12-10] MEDS: DIVALPROEX SODIUM 500 MG TABLET.DR PO SCH ×3 (10:22→16:26)
[2016-12-10] MEDS: BENICAR HCT PO SCH (10:24)
[2016-12-10 16:18] VITALS: BP 91/63
[2016-12-10 20:00] VITALS: BP 107/59
--- NOTE | 2016-12-10 20:00 | NUR ---
PATIENT IN ACTIVITY ROOM, WITH EPISODES OF AGITATION, RAMBLING TO SELF, INCOHERENT, DANGER TO OTHERS, NO SOB, DENIES ANY PAIN AT THIS TIME. ON ONE ON ONE SITTER. KEPT SAFE AND COMFORTABLE, WILL CONTINUE TO MONITOR.
[2016-12-10] MEDS: LORAZEPAM 0.5 MG TABLET PO PRN (20:52)
--- NOTE | 2016-12-10 20:53 | NUR ---
PATIENT IS RESTLESS, AGITATED, EASILY AGITATED, GIVEN ATIVAN 2MG PO. PATIENT IS SITTING IN DANNY CHAIR, SITTER BESIDE PATIENT. KEPT SAFE AND COMFORTABLE. WILL CONTINUE TO MONITOR.
[2016-12-10 22:00] VITALS: BP 107/59
[2016-12-10] MEDS: TEMAZEPAM 7.5 MG CAPSULE PO PRN (22:56)
--- NOTE | 2016-12-10 23:00 | NUR ---
PATIENT STILL RESTLESS, PACING IN THE ROOM, TALKING TO SELF. SITTER AT THE BEDSIDE. GIVEN RESTORIL. WILL CONTINUE TO MONITOR.
--- NOTE | 2016-12-11 01:24 | NUR ---
RESTORIL NOT EFFECTIVE, PATIENT STILL AWAKE IN BED, TALKING TO SELF, KEPT SAFE AND COMFORTABLE, SITTER AT THE BEDSIDE
[2016-12-11] MEDS: LORAZEPAM 0.5 MG TABLET PO PRN ×2 (05:54→13:01)
--- NOTE | 2016-12-11 06:17 | NUR ---
PATIENT UP ON CHAIR, TALKING TO SELF, RAMBLING TO SELF, RESTLESS, AGITATED, UNABLE TO REDIRECT BEHAVIOR, GIVEN ATIVAN 2 MG PO. KEPT SAFE, SITTER AT THE BEDSIDE. BP IS 115/65 HR 99
[2016-12-11 08:00] VITALS: BP 110/83
[2016-12-11] MEDS: OLANZAPINE 5 MG/TAB.RAPDIS PO SCH ×3 (08:36→21:36)
[2016-12-11] MEDS: BENICAR HCT PO SCH (08:36)
[2016-12-11] MEDS: DIVALPROEX SODIUM 500 MG TABLET.DR PO SCH ×3 (08:36→16:28)
--- NOTE | 2016-12-11 13:02 | NUR ---
ADMINISTERED ATIVAN 2 MG/ ML PO PRN FOR ANXIETY, PARANOIA, V/S STABLE BP- 113/80, P-92, CONTINUED MONITORING.
[2016-12-11 16:00] VITALS: BP 117/67
[2016-12-11 20:19] VITALS: BP 110/60
[2016-12-11] MEDS: TEMAZEPAM 7.5 MG CAPSULE PO PRN (21:37)
[2016-12-12 08:00] VITALS: BP 91/57
[2016-12-12] MEDS: DIVALPROEX SODIUM 500 MG TABLET.DR PO SCH ×3 (08:51→17:13)
[2016-12-12] MEDS: OLANZAPINE 5 MG/TAB.RAPDIS PO SCH (08:51)
[2016-12-12] MEDS: BENICAR HCT PO SCH (08:52)
[2016-12-12] MEDS: LORAZEPAM 0.5 MG TABLET PO PRN ×2 (12:56→20:22)
--- NOTE | 2016-12-12 12:56 | NUR ---
PATIENT APPEARS ANXIOUS AND AGITATED. NO SOB NOTED. GIVE ATIVAN 2MG PO PRN, WILL RE ASSESS.
--- NOTE | 2016-12-12 13:30 | NUR ---
PATIENT IN BED, APPEARS CALM AND RELAXED. ATIVAN PO PRN EFFECTIVE.
[2016-12-12 16:00] VITALS: BP 111/69
[2016-12-12] MEDS: BENZTROPINE MESYLATE (1 MG) 1 MG TABLET PO SCH (17:47)
[2016-12-12] MEDS: HALOPERIDOL 5 MG TABLET PO SCH (17:47)
--- NOTE | 2016-12-12 18:36 | NUR ---
RN CLOSING NOTES PATIENT AWAKE, SITTING UP IN THE BED. NOT IN DISTRESS, NO C/O PAIN AT THIS TIME. REFUSED LAB TODAY, MECHANICAL PRODUCT ENGINEER-MOHSEN INFORMED. CONTINUE ON 2770 ORDERED. 1:1 SITTER AT THE BEDSIDE. CALL LIGHT WITHIN REACH. WILL ENDORSE TO FREIGHT SHIPPING AGENT RN FOR CONTINUITY OF CARE.
[2016-12-12 20:00] VITALS: BP 119/80
--- NOTE | 2016-12-12 20:22 | NUR ---
RN NOTES PATIENT APPEARS RESTLESS AND AGITATED. ADMINISTERED ATIVAN 2MG PO PRESCRIBED. WILL CONTINUE TO CLOSELY MONITOR THE PATIENT
[2016-12-13] MEDS: BENZTROPINE MESYLATE (1 MG) 1 MG TABLET PO SCH ×2 (07:48→16:39)
[2016-12-13] MEDS: DIVALPROEX SODIUM 500 MG TABLET.DR PO SCH ×3 (07:48→20:15)
[2016-12-13] MEDS: HALOPERIDOL 5 MG TABLET PO SCH ×2 (07:48→18:19)
[2016-12-13] MEDS: BENICAR HCT PO SCH (08:02)
[2016-12-13 08:33] VITALS: BP 117/52
--- NOTE | 2016-12-13 11:45 | NUR ---
PT. WITH SITTER IN DINING RM.VERY GROGGY,BP CHECKED AND 87/50 AT THIS TIME WITH HEART RATE OF 80.PT. GIVEN 2 BOXES OF JUICE AND WALKED BACK TO RM. TO LIE DOWN.
--- NOTE | 2016-12-13 11:50 | NUR ---
BP RECHECKED AND 110/65,HEART RATE OF 92.PT. LYING FLAT IN BED AT THIS TIME.
--- NOTE | 2016-12-13 14:24 | NUR ---
ULYSSES spoke with pt's mother, Cathy [phone] who requested a letter stating pt. is hospitalized in a psychiatric unit. ULYSSES typed a letter and placed it in the pt's chart for mother to pick pulling machine tender.
[2016-12-13 16:48] VITALS: BP 99/41
--- NOTE | 2016-12-13 17:30 | NUR ---
PERMITTED INFORMATION ASSURANCE TO DRAW BLOOD.
[2016-12-13 20:32] VITALS: BP 101/61
[2016-12-14] MEDS: BENICAR HCT PO SCH (09:00)
[2016-12-14] MEDS: DIVALPROEX SODIUM 500 MG TABLET.DR PO SCH ×4 (09:00→22:09)
[2016-12-14] MEDS: HALOPERIDOL 5 MG TABLET PO SCH ×2 (09:00→16:32)
[2016-12-14] MEDS: BENZTROPINE MESYLATE (1 MG) 1 MG TABLET PO SCH ×3 (09:00→19:07)
[2016-12-14 09:06] VITALS: BP 109/69
[2016-12-14] MEDS ORDERED: HALOPERIDOL DECANOATE IM 100 MG/ML AMPUL IM ONE (15:30)
[2016-12-14 16:26] VITALS: BP 101/55
[2016-12-14 19:59] VITALS: BP 114/73
[2016-12-14] MEDS: LORAZEPAM 0.5 MG TABLET PO PRN (20:30)
[2016-12-14] MEDS: TEMAZEPAM 7.5 MG CAPSULE PO PRN (23:06)
[2016-12-15] MEDS: LORAZEPAM 0.5 MG TABLET PO PRN (03:21)
[2016-12-15 07:17] LABS: BASOPHILS % (AUTO) 0.5 % (0.0-2.0); EOSINOPHILS % (AUTO) 0.3 % (0.0-6.0); HEMATOCRIT 48 % (39-51); HEMOGLOBIN 16.5 g/dL (13.5-17.5); LYMPHOCYTES # (AUTO) 1.5 /CMM (0.8-4.8); LYMPHOCYTES % (AUTO) 18.4 % (20.0-44.0); MEAN CORPUSCULAR HEMOGLOBIN 32 PG (26.0-33.0); MEAN CORPUSCULAR HGB CONC 34 g/dl (31.0-36.0); MEAN CORPUSCULAR VOLUME 94 fL (80-96); MONOCYTES # (AUTO) 1.7 /CMM (0.1-1.30); MONOCYTES % (AUTO) 20.4 % (2.0-12.0); NEUTROPHILS % (AUTO) 60.4 % (43.0-81.0); PLATELET COUNT (AUTO) 227 /CMM (150-450); RDW COEFFICIENT OF VARIATION 13.2 (11.5-15.0); RED BLOOD CELL COUNT(AUTO) 5.14 MIL/uL (4.5-6.0); WHITE BLOOD COUNT (AUTO) 8.2 K/uL (4.3-11.0)
[2016-12-15 07:24] LABS: CALCIUM, SERUM 8.8 mg/dL (8.5-10.1); CREATININE 1.3 mg/dL (0.6-1.3); MAGNESIUM 2.1 mg/dL (1.8-2.4); POTASSIUM 4.1 mmol/L (3.5-5.1)
[2016-12-15] MEDS: DIVALPROEX SODIUM 500 MG TABLET.DR PO SCH ×3 (08:25→21:40)
[2016-12-15] MEDS: BENZTROPINE MESYLATE (1 MG) 1 MG TABLET PO SCH ×2 (08:25→16:28)
[2016-12-15] MEDS: BENICAR HCT PO SCH (08:26)
[2016-12-15 08:45] VITALS: BP 114/54
[2016-12-15 08:51] LABS: BAND % (MANUAL) 1 % (0.0-5.0); LYMPHOCYTES % (MANUAL) 19 % (16-48); MONOCYTES % (MANUAL) 22 % (0-11.0); NEUTROPHILS % (MANUAL) 58 (42-76)
[2016-12-15 08:52] LABS: PLATELET ESTIMATE ADEQUATE
--- NOTE | 2016-12-15 14:26 | NUR ---
SW spoke with pt regarding discharge. Pt. is doing somewhat better today. Pt. was able to have a short conversation about discharge and sw notified the patient that if needed, she is available to help.
[2016-12-15 15:52] VITALS: BP 118/54
--- NOTE | 2016-12-15 19:30 | NUR ---
GPSRN SEEN OUT OF BED AMBULATORY, COOPERATIVE, FOLLOWS INSTRUCTIONS, COMMUNICATES INCOHERENTLY. SAFETY PRECAUTIONS OBSERVED, SITTER AT BEDSIDE.
[2016-12-15 20:00] VITALS: BP 90/57
--- NOTE | 2016-12-15 21:30 | NUR ---
GPSRN SLEEPING, EASILY AWAKENED WHEN CALLED. DUE MEDS ADMINISTERED. NO OTHER NEEDS MADE. WENT BACK TO SLEEP. BP ON LOW 100s. ASYMPTOMATIC.
[2016-12-15] MEDS: HALOPERIDOL 5 MG TABLET PO SCH (21:40)
[2016-12-15 23:00] VITALS: BP 98/64
--- NOTE | 2016-12-15 23:12 | NUR ---
GPSRN SLEEPING APPEARS COMFORTABLE.
[2016-12-16 08:34] VITALS: BP 131/86
[2016-12-16 08:36] VITALS: BP 130/86
[2016-12-16] MEDS: DIVALPROEX SODIUM 500 MG TABLET.DR PO SCH ×3 (09:00→21:00)
[2016-12-16] MEDS: BENICAR HCT PO SCH (09:00)
--- NOTE | 2016-12-16 10:58 | NUR ---
GPS RN: PATIENT APPEARS TO BE SEDATED. VS STABLE. BRETT VIDALES, DR. BEACH IS AWARE. CAN ADMINISTER COGENTIN AT ANY TIME LATER IN THE DAY, PER DR. BEACH.
[2016-12-16] MEDS: BENZTROPINE MESYLATE (1 MG) 1 MG TABLET PO SCH ×2 (11:49→16:55)
[2016-12-16 16:25] VITALS: BP 104/74
[2016-12-16] MEDS: IBUPROFEN 400 MG TABLET PO PRN (16:55)
--- NOTE | 2016-12-16 16:55 | NUR ---
GPS RN: MOTRIN 400MG ADMINISTERED FOR RIGHT SHOULDER PAIN, UNABLE TO SCALE. NOT IN DISTRESS, CONTINUE TO MONITOR.
--- NOTE | 2016-12-16 17:38 | NUR ---
ULYSSES spoke with Dr. Stock and if pt. continues to do well on Monday and pt's mother, Cathy [phone] agrees to take him home, pt can be discharged home.
--- NOTE | 2016-12-16 19:30 | NUR ---
PS RN NOTE, RECEIVED PATIENT AWAKE AND IN BED, NO S/S OR COMPLAINTS OF PAIN AT THIS TIME. PATIENT IS DISPLAYING NO S/S OF APPARENT DISTRESS AT THIS TIME. PATIENT BREATHING IS UNLABORED WITH EQUAL RISE AND FALL OF THE CHEST. PATIENT IS ALERT AND ORIENTED X 2 ON ROOM AIR WITH A SPO2 96%. PATIENT COMPLIANT WITH MEDICATIONS, ANXIOUS, HYPERVERBAL, DISORGANIZED, CONFUSED AT TIMES, AND NEEDS REORIENTATION. PATIENT HAS ONE TO ONE SITTER FOR BEING A DANGER TO STAFF. PATIENT DENIES SUICIDE AND HOMICIDAL IDEATIONS AT THIS TIME. PATIENT ASSISTED WITH TURNING AND REPOSITIONING Q2HR AND PRN FOR COMFORT AND CIRCULATION. PATIENT HAS NO NEEDS AT THIS TIME. PATIENT REFUSED SKIN ASSESSMENT TODAY. PATIENT EDUCATED ON THE USE OF THE CALL TREJO. PATIENT BED SIDE RAILS UP X2 FOR SAFETY, BED IS LOCKED AND LOW WILL CONTINUE TO MONITOR AND MAINTAIN SAFETY.
[2016-12-16 20:13] VITALS: BP 103/65
--- NOTE | 2016-12-16 21:00 | NUR ---
GPS RN NOTE, PATIENT REFUSED TO TAKE DEPAKOTE 500MG 1 TAB PO AND REFUSED TO TAKE HALDOL 10MG PO HS. OFFERED MEDICATION THREE TIMES AND STILL PATIENT REFUSED STATING, " I DON'T TAKE THOSE MEDICATIONS AND I HAVE NEVER TAKEN THOSE MEDICATIONS BEFORE ". EDUCATED THE PATIENT ON THE RISKS AND BENEFITS OF TAKING AND REFUSING AFOREMENTIONED MEDICATIONS. WILL CONTINUE TO MONITOR THIS PATIENT.
[2016-12-16] MEDS: HALOPERIDOL 5 MG TABLET PO SCH (21:45)
[2016-12-16] MEDS: TEMAZEPAM 7.5 MG CAPSULE PO PRN (21:50)
--- NOTE | 2016-12-16 21:50 | NUR ---
GPS RN NOTE, PATIENT HAS A COMPLAINT OF NOT BEING ABLE TO SLEEP AND WOULD LIKE A SLEEPING AID AT THIS TIME. PATIENT VITAL SIGN ARE STABLE. GAVE RESTORIL 7.5MG PO HAS ORDERED. WILL REASSESS FOR INSOMNIA AND I WILL CONTINUE TO MONITOR THIS PATIENT.
[2016-12-17] MEDS: IBUPROFEN 400 MG TABLET PO PRN ×2 (01:03→19:51)
--- NOTE | 2016-12-17 01:03 | NUR ---
GPS RN NOTE, PATIENT HAS A COMPLAINT OF RIGHT SHOULDER PAIN AT 3 OUT 10 ON THE PAIN SCALE AND WOULD LIKE MEDICATION AT THIS TIME. PATIENT VITAL SIGNS ARE STABLE. GAVE MOTRIN 400MG PO Q6HR PRN ORDERED. WILL REASSESS FOR PAIN AND I WILL CONTINUE TO MONITOR THIS PATIENT.
[2016-12-17 08:28] VITALS: BP 138/70
[2016-12-17] MEDS: DIVALPROEX SODIUM 500 MG TABLET.DR PO SCH ×3 (08:45→21:33)
[2016-12-17] MEDS: BENICAR HCT PO SCH (08:45)
[2016-12-17] MEDS: BENZTROPINE MESYLATE (1 MG) 1 MG TABLET PO SCH ×2 (08:45→17:31)
[2016-12-17 16:00] VITALS: BP 94/57
--- NOTE | 2016-12-17 19:30 | NUR ---
GPS RN NOTE, RECEIVED PATIENT AWAKE AND IN BED, PATIENT HAS A COMPLAINT OF RIGHT SHOULDER PAIN AT 3 OUT 10 ON THE PAIN SCALE. PATIENT IS TAKING ORAL PAIN MEDICATION FOR THIS PAIN. PATIENT IS DISPLAYING NO S/S OF APPARENT DISTRESS AT THIS TIME. PATIENT BREATHING IS UNLABORED WITH EQUAL RISE AND FALL OF THE CHEST. PATIENT IS ALERT AND ORIENTED X 2 ON ROOM AIR WITH A SPO2 97%. PATIENT SELECTIVE WITH MEDICATIONS, ANXIOUS, HYPERVERBAL, DISORGANIZED, CONFUSED AT TIMES, AND NEEDS REORIENTATION. PATIENT HAS ONE TO ONE SITTER FOR BEING A DANGER TO STAFF. PATIENT DENIES SUICIDE AND HOMICIDAL IDEATIONS AT THIS TIME. PATIENT ASSISTED WITH TURNING AND REPOSITIONING Q2HR AND PRN FOR COMFORT AND CIRCULATION. PATIENT HAS NO NEEDS AT THIS TIME. PATIENT REFUSED SKIN ASSESSMENT TODAY. PATIENT EDUCATED ON THE USE OF THE CALL TREJO. PATIENT BED SIDE RAILS UP X2 FOR SAFETY, BED IS LOCKED AND LOW WILL CONTINUE TO MONITOR AND MAINTAIN SAFETY.
[2016-12-17 19:55] VITALS: BP 102/60
--- NOTE | 2016-12-17 20:35 | NUR ---
GPS RN NOTE, PATIENT HAS A COMPLAINT OF RIGHT SHOULDER PAIN AT 5 OUT 10 ON THE PAIN SCALE. PATIENT ALSO HAS A COMPLAINT OF COUGH FOR THE LAST THREE DAYS. PATIENT LUNGS ARE CLEAR TO AUSCULTATION WITH A SPO2 OF 97%. PAGED [facility] AND SPOKE WITH MOHSEN QUIROZ AND INFORMED HER OF MY FINDINGS. [facility] ORDERED PERCOCET 5/325 MG 1 UDTAB PO Q6HR PRN. [facility] IS ALSO AWARE THAT PATIENT HAS A ALLERGY TO ACETAMINOPHEN AND HYDROCODONE BUT, PATIENT STATES THAT HE TAKES PERCOCET AT HOME AND [facility] THINKS IT'S SAFE TO GIVE. [facility] ALSO ORDERED ROBITUSSIN DM SYRUP 5 ML 1 UNIT DOSE CUP PO Q6HR PRN. ALL ORDERS NOTED AND CARRIED OUT WILL CONTINUE TO MONITOR THIS PATIENT.
[2016-12-17] MEDS ORDERED: GUAIFENESIN/D-METHORPHAN HB 5 ML UDC ONE (20:43)
--- NOTE | 2016-12-17 20:53 | NUR ---
GPS RN NOTE, PATIENT ALSO HAS A COMPLAINT OF COUGH FOR THE LAST THREE DAYS. PATIENT LUNGS ARE CLEAR TO AUSCULTATION WITH A SPO2 OF 97%. PATIENT VITAL SIGNS ARE STABLE. GAVE ROBITUSSIN DM 5ML 1 UNIT DOSE CUP PO Q6HR PRN. WILL CONTINUE TO MONITOR THIS PATIENT.
[2016-12-17] MEDS ORDERED: GUAIFENESIN/D-METHORPHAN HB 5 ML UDC PO PRN (21:00)
[2016-12-17] MEDS: HALOPERIDOL 5 MG TABLET PO SCH (21:33)
[2016-12-17] MEDS: TEMAZEPAM 7.5 MG CAPSULE PO PRN (23:42)
[2016-12-18 08:00] VITALS: BP 123/55
[2016-12-18] MEDS: BENZTROPINE MESYLATE (1 MG) 1 MG TABLET PO SCH ×2 (09:03→18:08)
[2016-12-18] MEDS: DIVALPROEX SODIUM 500 MG TABLET.DR PO SCH ×3 (09:03→21:00)
[2016-12-18] MEDS: BENICAR HCT PO SCH (09:03)
[2016-12-18] MEDS: oxyCODONE/APAP (5/325 MG) 1 UDTAB TABLET PO PRN ×2 (11:15→21:59)
--- NOTE | 2016-12-18 11:16 | NUR ---
ADMINISTERED PERCOCET 5/325 MG PO PRN FOR LEFT ARM PAIN 05/04 , V/S STABLE, BP-124/75, P-75, CONTINUED MONITORING.
[2016-12-18] MEDS: LORAZEPAM 0.5 MG TABLET PO PRN (18:08)
--- NOTE | 2016-12-18 18:08 | NUR ---
administered ativan 2 mg po prn for anxiety, paranoia, aggressive , v/s stable bp 124/76, p-89, continued monitoring.
--- NOTE | 2016-12-18 19:35 | NUR ---
GPS OPENING NOTES RECEIVED Pt ASLEEP IN ROOM WITH 1:1 SITTER AT BEDSIDE FOR DANGER TO OTHERS. NO S/S OF ACUTE DISTRESS OR SOB NOTED. Pt BREATHING IS UNLABORED WITH EQUAL RISE AND FALL OF THE CHEST. NO SIGNS OF PAIN NOTED AT THIS TIME. Pt IS A/OX2-3, AMBULATORY. SAFETY MEASURES IN PLACE. BED LOW, LOCKED, HOB ELEVATED, & SIDE RAILS UP. WILL CONTINUE TO MONITOR Pt THROUGHOUT THE NIGHT AND MAINTAIN SAFETY.
[2016-12-18 20:11] VITALS: BP 103/59
--- NOTE | 2016-12-18 20:51 | NUR ---
Pt WOKE UP FROM SLEEP. ASKED IF HE WANTED HIS PM MEDS, HE REFUSED ALL MEDS. STATED THAT HE IS GOING HOME TONIGHT SO TO LEAVE HIM ALONE AND NOT TO SPEAK TO HIM. DID NOT ENGAGE WITH Pt FURTHER AND WALKED AWAY FROM ROOM.
[2016-12-18] MEDS: TEMAZEPAM 7.5 MG CAPSULE PO PRN (21:59)
[2016-12-18] MEDS: HALOPERIDOL 5 MG TABLET PO SCH (22:00)
--- NOTE | 2016-12-18 22:15 | NUR ---
RN NOTES Pt GOT UP FROM BED AND REQUESTED HIS PRN PERCOCET FOR HIS RT SHOULDER PAIN AND RESTORIL FOR SLEEP. Pt REFUSED HIS PM SCHEDULED MEDS.
--- NOTE | 2016-12-19 06:35 | NUR ---
RN CLOSING NOTES NO SIGNIFICANT CHANGES. NO S/S OF ACUTE DISTRESS OR SOB NOTED DURING THE NIGHT. ALL SAFETY MEASURES CARRIED OUT. 1:1 SITTER AT BEDSIDE. DC PLANING IN THE AM TODAY. ALL NEEDS MET AND ATTENDED TO. WILL ENDORSE TO DAYSHIFT RN FOR Pt's ERICA.
[2016-12-19 08:00] VITALS: BP 90/54
[2016-12-19] MEDS: DIVALPROEX SODIUM 500 MG TABLET.DR PO SCH ×3 (08:59→21:20)
[2016-12-19] MEDS: BENZTROPINE MESYLATE (1 MG) 1 MG TABLET PO SCH ×2 (08:59→16:27)
[2016-12-19] MEDS: BENICAR HCT PO SCH (09:00)
[2016-12-19] MEDS: oxyCODONE/APAP (5/325 MG) 1 UDTAB TABLET PO PRN (09:08)
--- NOTE | 2016-12-19 09:08 | NUR ---
pt. c/o pain right arm , pain scale 9/10 , administrated oxycodone 5 /325 po prn as PER Md orders encouraged to increases fluids INTAKE, vital signs taken bp 105 / 58 p,60 will continue to monitor .
--- NOTE | 2016-12-19 09:21 | NUR ---
ULYSSES spoke with pt's mother, Cathy [phone] regarding pt's discharge today. Cathy is not happy about pt's discharge as she does not have a bed for him in the new house and won't have someone watching him 17/04. Pt. refuses a placement, and having no bed and no one to watch him for 24 hours is not going to change in a day and pt. cannot continue staying at the hospital due to not having a bed. ULYSSES will attempt to speak with pt again regarding a placement. Cathy said she will call back.
[2016-12-19] MEDS: LORAZEPAM 0.5 MG TABLET PO PRN (13:47)
--- NOTE | 2016-12-19 13:49 | NUR ---
PT. C/O FEELING ANXIOUS AGITATED ADMINISTERED ATIVAN 2 MG PO PRN PRESCRIBED , V/S TAKEN BP 100/60, P -87, WILL CONTINUE TO MONITOR
[2016-12-19] MEDS: IBUPROFEN 400 MG TABLET PO PRN (14:34)
--- NOTE | 2016-12-19 14:35 | NUR ---
PT. C/O PAIN RIGHT ARM PAIN SCALE 6/10 ,IBUPROFEN 400 MG PO PRN GIVEN PER MD ORDERS ,WILL CONTINUE TO MONITOR
--- NOTE | 2016-12-19 14:40 | NUR ---
SW spoke with Cathy [phone] again who notified the SW that she will come and wait at the hospital so she can speak with the doctor.
[2016-12-19 16:00] VITALS: BP 97/53
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
[2016-12-19] MEDS: chlorproMAZINE HCL 25 MG TABLET PO SCH (19:12)
--- NOTE | 2016-12-19 19:25 | NUR ---
RN OPENING NOTES: PATIENT RECEIVED IN ROOM, ALOX3 AND IS ABLE TO AMBULATE AND ROAM AROUND UNIT. PATIENT NOTED TO BE SLIGHTLY ANXIOUS AND RESTLESS. BREATHING UNLABORED; PT IS NOT IN APPARENT DISTRESS WITH NO COMPLAINTS OF PAIN AT THIS TIME. WITH ONE TO ONE SITTER ON BEDSIDE AT ALL TIMES. TO MONITOR FOR PLANS AND VERBALIZATION OF SUICIDAL OR HOMICIDAL IDEATIONS.SAFETY AND COMFORT MEASURES ENSURED; SAFETY CHECKS EVERY 15 MINS PER DEPARTMENT PROTOCOL. ANTICIPATED AND ATTENDED NEEDS. CONTINUOUSLY MONITORED FOR SAFETY AND BEHAVIOR.
[2016-12-19 19:46] VITALS: BP 100/67
--- NOTE | 2016-12-19 21:09 | NUR ---
RN NOTES: PATIENT COMPLAINED OF GAS-LIKE PAIN OVER UPPER ABDOMEN AND REQUESTED FOR MEDICATION. INFORMED PT OF WHAT MEDICATION WAS ORDERED BY MD FOR GAS LIKE PAIN. WHEN MEDICATION WAS OPENED AND OFFERED, PATIENT GOT UPSET AND REFUSED MEDICATION SAYING "THAT'S NOT THE MEDICATION THAT I WANT. YOU PEOPLE SCREWED UP ALL MY MEDICATION." CONCEDED TO PT'S REFUSAL OF MED. TO MONITOR PT FOR FURTHER ABDOMINAL PAIN
[2016-12-20 08:00] VITALS: BP 100/61
[2016-12-20] MEDS: BENZTROPINE MESYLATE (1 MG) 1 MG TABLET PO SCH ×2 (08:33→17:24)
[2016-12-20] MEDS: chlorproMAZINE HCL 25 MG TABLET PO SCH ×4 (08:33→20:32)
[2016-12-20] MEDS: DIVALPROEX SODIUM 500 MG TABLET.DR PO SCH ×3 (08:33→20:33)
[2016-12-20] MEDS: LORAZEPAM 0.5 MG TABLET PO PRN (08:34)
--- NOTE | 2016-12-20 08:34 | NUR ---
administered ativan 2 mg po prn for paranoia, anxiety, manic, irritable, v/s take bp 100/61, p-61, continued monitoring.
[2016-12-20] MEDS: BENICAR HCT PO SCH (08:38)
[2016-12-20 16:00] VITALS: BP 113/63
[2016-12-20 20:08] VITALS: BP 120/60
[2016-12-20] MEDS: TEMAZEPAM 7.5 MG CAPSULE PO PRN (20:33)
[2016-12-21 08:00] VITALS: BP 97/68
[2016-12-21] MEDS: DIVALPROEX SODIUM 500 MG TABLET.DR PO SCH ×3 (08:05→21:00)
[2016-12-21] MEDS: BENZTROPINE MESYLATE (1 MG) 1 MG TABLET PO SCH ×2 (08:05→16:08)
[2016-12-21] MEDS: BENICAR HCT PO SCH (08:06)
[2016-12-21] MEDS: chlorproMAZINE HCL 25 MG TABLET PO SCH ×3 (08:08→16:08)
--- NOTE | 2016-12-21 09:13 | NUR ---
SW called pt's mother, Cathy [phone] but number was disconnected. Then, ULYSSES called pt's family friend, Kinga [phone] who informed that the number is disconnected and they think the patient disconnected it. ULYSSES spoke with Kinga about pt's discharge today and Kinga states that he will be here with pt's mother to pick him up. ULYSSES asked if pt's mother was going to move out as she mentioned on Monday, Kinga stated that she will not.
--- NOTE | 2016-12-21 15:17 | NUR ---
RN-CO: Patient became agitated, belligerent when Mother and boyfriend came to picked him up. Dr Stock was called and ordered to cancel discharge and continue hold, noted and carried out.
[2016-12-21] MEDS: LORAZEPAM 0.5 MG TABLET PO PRN (15:35)
--- NOTE | 2016-12-21 15:38 | NUR ---
GPS RN NOTE: PATIENT IN THE ROOM AGITATED,LOUD ,UNABLE TO CONTROL BEHAVIOR ATIVAN 2 MG PO PRN GIVEN WILL CONTINUE MONITORING
--- NOTE | 2016-12-21 15:40 | NUR ---
GPS RN NOTE: DR VEGA AWARE OF CANCELATION OF DC PER DR SCHILLING ORDER.
[2016-12-21] MEDS ORDERED: chlorproMAZINE HCL 25 MG TABLET PO SCH (17:00)
[2016-12-21] MEDS: oxyCODONE/APAP (5/325 MG) 1 UDTAB TABLET PO PRN (19:20)
--- NOTE | 2016-12-21 19:20 | NUR ---
GPS RN NOTE, PATIENT HAS A COMPLAINT OF LOWER BACK AT 6 OUT 10 ON THE PAIN SCALE AND WOULD LIKE MEDICATION AT THIS TIME. PATIENT VITAL SIGNS ARE STABLE. GAVE PERCOCET 5/325 1 UD TAB Q6HR PRN ORDERED. WILL REASSESS PAIN AND I WILL CONTINUE TO MONITOR THIS PATIENT.
--- NOTE | 2016-12-21 19:30 | NUR ---
GPS RN NOTE, RECEIVED PATIENT AWAKE AND IN BED, NO S/S OR COMPLAINTS OF PAIN AT THIS TIME. PATIENT IS DISPLAYING NO S/S OF APPARENT DISTRESS AT THIS TIME. PATIENT BREATHING IS UNLABORED WITH EQUAL RISE AND FALL OF THE CHEST. PATIENT HAS A 1 TO 1 SITTER FOR BEING AGGRESSIVE. PATIENT IS ALERT AND ORIENTED X 1-2 ON ROOM AIR WITH A SPO2 95%. PATIENT SELECTIVE WITH MEDICATIONS, ANXIOUS, HYPERVERBAL, DISORGANIZED, CONFUSED AT TIMES, VERBALLY AGGRESSIVE, AND NEEDS REORIENTATION. PATIENT DENIES SUICIDE AND HOMICIDAL IDEATIONS AT THIS TIME. PATIENT ASSISTED WITH TURNING AND REPOSITIONING Q2HR AND PRN FOR COMFORT AND CIRCULATION. PATIENT HAS NO NEEDS AT THIS TIME. PATIENT EDUCATED ON THE USE OF THE CALL TREJO. PATIENT BED SIDE RAILS UP X2 FOR SAFETY, BED IS LOCKED AND LOW WILL CONTINUE TO MONITOR AND MAINTAIN SAFETY.
[2016-12-21 20:32] VITALS: BP 95/48
--- NOTE | 2016-12-21 21:34 | NUR ---
GPS RN NOTE, PATIENT IS TOO SEDATED TO HAVE DEPAKOTE 500 MG PO AT THIS TIME. PATIENT VITAL SIGNS ARE STABLE. WILL CONTINUE TO MONITOR THIS PATIENT.
[2016-12-22 08:00] VITALS: BP 93/65
[2016-12-22] MEDS: BENICAR HCT PO SCH (09:00)
--- NOTE | 2016-12-22 09:00 | NUR ---
GPS RN NOTE, RECEIVED PATIENT ALERT IN BED, NO S/S OR COMPLAINTS OF PAIN AT THIS TIME. PATIENT IS DISPLAYING NO S/S OF APPARENT DISTRESS AT THIS TIME. PATIENT BREATHING IS UNLABORED WITH EQUAL RISE AND FALL OF THE CHEST. PATIENT HAS A 1 TO 1 SITTER FOR BEING AGGRESSIVE. PATIENT IS ALERT AND ORIENTED X 1-2 ON ROOM AIR WITH A SPO2 96%. PATIENT ANXIOUS, HYPERVERBAL, DISORGANIZED, CONFUSED AT TIMES, VERBALLY AGGRESSIVE, AND NEEDS REORIENTATION. PATIENT DENIES SUICIDE AND HOMICIDAL IDEATIONS AT THIS TIME. PATIENT ASSISTED WITH TURNING AND REPOSITIONING Q2HR AND PRN FOR COMFORT AND CIRCULATION. PATIENT HAS NO NEEDS AT THIS TIME. PATIENT EDUCATED ON THE USE OF THE CALL TREJO. PATIENT BED SIDE RAILS UP X2 FOR SAFETY, BED IS LOCKED AND LOW WILL CONTINUE TO MONITOR AND MAINTAIN SAFETY.
[2016-12-22] MEDS: DIVALPROEX SODIUM 500 MG TABLET.DR PO SCH ×3 (10:16→20:12)
[2016-12-22] MEDS: BENZTROPINE MESYLATE (1 MG) 1 MG TABLET PO SCH ×2 (10:16→16:18)
--- NOTE | 2016-12-22 10:18 | NUR ---
GPS RN NOTES PATIENTS BP NOTED 93/[address] SCHILLING ORDERS TO DISCONTINUE TORAZINE AND HOLD DEPAKOTE IF BP 90/60 NOTED AND CARRIED OUT. PATIENT AMBULATING IN THE HALLWAY SEEN SPEAKING WITH SIDE TRIMMER.
--- NOTE | 2016-12-22 10:18 | NUR ---
DR. SCHILLING NOTIFIED ABOUT THE BP OF 93/55 AND ORDERED TO D/C THORAZINE AND GAVE A PARAMETER ON DEPAKOTE TO HOLD IF BP IS BELOW 90/60.
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
--- NOTE | 2016-12-22 15:50 | NUR ---
ULYSSES received a voicemail from pt's mother, Cathy [phone] (new number), stating she doesn't know what to do. ULYSSES discussed the case with director who will call Cathy.
--- NOTE | 2016-12-22 16:08 | NUR ---
ULYSSES spoke with pt. Pt. is denying suicidal/homicidal ideations and is able to have a conversation and is calm at this point. Pt. insists on going home and being discharged as he feels better. ULYSSES notified pt. that he will be discharged tomorrow. Pt. agrees.
[2016-12-22 16:17] VITALS: BP 92/63
--- NOTE | 2016-12-22 18:41 | NUR ---
GPS RN NOTES PATIENT IN BED WITH SITTER AT BEDSIDE. NO SOB OR ACUTE DISTRESS NOTED. BREATHING EVEN AND UNLABORED. ALL DUE MEDICATIONS GIVEN. ALL NEEDS MET. PATIENT COOPERATIVE WITH MEDICATION. WILL ENDORSE TO PM SHIFT ERICA.
--- NOTE | 2016-12-22 19:26 | NUR ---
GPS RN NOTE, RECEIVED PATIENT AWAKE AND IN BED, NO S/S OR COMPLAINTS OF PAIN AT THIS TIME. PATIENT IS DISPLAYING NO S/S OF APPARENT DISTRESS AT THIS TIME. PATIENT BREATHING IS UNLABORED WITH EQUAL RISE AND FALL OF THE CHEST. PATIENT HAS A 1 TO 1 SITTER FOR BEING AGGRESSIVE. PATIENT IS ALERT AND ORIENTED X 1-2 ON ROOM AIR WITH A SPO2 95%. PATIENT SELECTIVE WITH MEDICATIONS, ANXIOUS, DISORGANIZED, CONFUSED AT TIMES, AND NEEDS REORIENTATION. PATIENT DENIES SUICIDE AND HOMICIDAL IDEATIONS AT THIS TIME. PATIENT ASSISTED WITH TURNING AND REPOSITIONING Q2HR AND PRN FOR COMFORT AND CIRCULATION. PATIENT HAS NO NEEDS AT THIS TIME. PATIENT EDUCATED ON THE USE OF THE CALL TREJO. PATIENT BED SIDE RAILS UP X2 FOR SAFETY, BED IS LOCKED AND LOW WILL CONTINUE TO MONITOR AND MAINTAIN SAFETY.
[2016-12-22 20:00] VITALS: BP 98/62
[2016-12-22] MEDS: IBUPROFEN 400 MG TABLET PO PRN (20:12)
[2016-12-22] MEDS ORDERED: HALOPERIDOL 5 MG TABLET ONE (21:25)
--- NOTE | 2016-12-22 21:30 | NUR ---
GPS RN NOTE, RECEIVED A CALL FROM DR SCHILLING STATING THAT THE CONSENT FOR HALDOL HAS BEEN SIGNED. DR SCHILLING THEN ORDERED TO GIVE HALDOL 10MG QAM AND QPM STARTING TODAY. ALL ORDERS NOTED AND CARRIED OUT WILL CONTINUE TO MONITOR THIS PATIENT.
[2016-12-22] MEDS: HALOPERIDOL 5 MG TABLET PO SCH (21:36)
[2016-12-23] MEDS: TEMAZEPAM 7.5 MG CAPSULE PO PRN (00:25)
[2016-12-23] MEDS: BENICAR HCT PO SCH (09:00)
[2016-12-23] MEDS: DIVALPROEX SODIUM 500 MG TABLET.DR PO SCH (10:01)
[2016-12-23] MEDS: BENZTROPINE MESYLATE (1 MG) 1 MG TABLET PO SCH (10:01)
[2016-12-23] MEDS: HALOPERIDOL 5 MG TABLET PO SCH (10:01)
--- NOTE | 2016-12-23 11:19 | NUR ---
GPS RN: RECEIVED A CALL FROM DR. SCHILLING WITH AN ORDER TO CROSS OUT THORAZINE ON THE PRESCRIPTION AND ADD HALDOL 10MG PO BID. CHARGE NURSE VIKASH WITNESSED MD'S ORDER. CALLED [facility], SPOKE WITH RODNEY, ORDERED PATIENT'S MEDICATIONS (PHARMACY NUMBER [phone], PROVIDED BY THE CASH VAN SALESPERSON ZEHRA.
--- NOTE | 2016-12-23 13:25 | NUR ---
GPS HEAD OF CONSERVATION NOTES: PATIENT'S HOLD DISCONTINUED AND PATIENT DISCHARGED HOME (SEE ALSO SW NOTES). PATIENT'S CONDITION IS STABLE FOR DISCHARGE, VS STABLE, DENIES SI/HI/AVH AT THE TIME OF DISCHARGE. PATIENT IS COOPERATIVE AND COMPLIANT WITH MEDICATIONS. CALLED IN PATIENT'S PRESCRIPTIONS TO FAMILY'S PREFERRED PHARMACY ([facility] [phone], SPOKE WITH RODNEY). ALL BELONGINGS RETURNED TO THE PATIENT. EDUCATIONAL EXIT CARE PRINTED, SIGNED AND PROVIDED TO THE PATIENT. PATIENT PROVIDED WITH TAXI VOUCHER, HE LEFT THE UNIT IN STABLE CONDITION ACCOMPANIED BY STAFF. Addendum: 12/23/16 at 1655 by SEBASTIEN REID RN PATIENT REFUSED DISCHARGE PHOTOS.
--- NOTE | 2016-12-23 14:18 | NUR ---
Discharge note: Pt. was discharged home with his mother, Cathy [phone] to [address] [place] [address] via taxi. Mother was notified of discharge and she provided the number for pharmacy to fax the prescriptions. She requested for pt. to be sent after 1:00PM and that was done. Pt. denied suicidal/homicidal ideations, was calm and cooperative, happy to be leaving the hospital. ULYSSES provided pt. will [facility] [place] and other resources for low cost mental health clinics. Pt and mother were recommended to see a family therapist to help with their relationship. Mother was suggested several times to consider living separately, but mother refused and wanted the patient back home. Pt. agreed with discharge plan as well as did the mother and was discharged today in stable condition. Discharge paperwork has been signed, and discharge instructions has been provided to the patient. ULYSSES left a voicemail for [facility] social problems specialistSteve [phone] regarding pt's discharge.
== END 2016-12-23 13:45 | disposition home or self-care (01) | DRG 885 ==
LOC: GPS 11:14
PROVIDERS: ADMIT Psychiatry & Neurology Psychiatry; ATTEND Internal Medicine
DX: F31.2 Bipolar disorder, current episode manic severe with psychotic features (principal); N18.3 Chronic kidney disease, stage 3 (moderate); R45.851 Suicidal ideations; F12.10 Cannabis abuse, uncomplicated; F29 Unspecified psychosis not due to a substance or known physiological condition; Z73.6 Limitation of activities due to disability; I12.9 Hypertensive chronic kidney disease with stage 1 through stage 4 chronic kidney disease, or unspecified chronic kidney disease; K21.9 Gastro-esophageal reflux disease without esophagitis; G89.29 Other chronic pain; E78.5 Hyperlipidemia, unspecified; E66.01 Morbid (severe) obesity due to excess calories; E86.0 Dehydration; F41.9 Anxiety disorder, unspecified; Z68.31 Body mass index [BMI] 31.0-31.9, adult
CPT/HCPCS: 36415; 71010-TC; 73080-TC; 80048-TC; 80164-TC; 83735-TC; 84100-TC; 85025-TC; 87081-TC; J1631; J2060; J3490; Q0161; Z7610